=== PATIENT | male | born 1980 | race Caucasian/White ===

== ENCOUNTER 2023-01-23 05:51 | Emergency (ER) | payer BC ==
[2023-01-23] MEDS ORDERED: Acetaminophen 325 MG Tab PO ONE (06:09)
[2023-01-23] MEDS ORDERED: Morphine 15 MG Tab PO STA (06:10)
[2023-01-23] MEDS ORDERED: Ketorolac 10 MG Tab PO ONE (06:46)
== END 2023-01-23 07:29 | disposition home or self-care (01) ==
LOC: MW.ED 05:51
DX: G89.18 Other acute postprocedural pain (principal); Z88.0 Allergy status to penicillin; Z79.899 Other long term (current) drug therapy
CPT/HCPCS: 73600; 99283; A9270

== ENCOUNTER 2024-07-27 20:54 | Emergency (ER) | payer BC ==
[2024-07-27] MEDS ORDERED: Sodium Chloride 0.9% 20 ML SDV IV PRN (21:56)
[2024-07-27 22:10] LABS: BASOPHILS ABSOLUTE AUTO 0.02 K/uL (0.00-0.20); BASOPHILS PERCENT AUTO 0.2 % (0.0-1.0); EOSINOPHILS ABSOLUTE AUTO 0.15 K/uL (0.00-0.45); EOSINOPHILS PERCENT AUTO 1.4 % (0.0-6.0); HEMOGLOBIN 16.7 g/dL (14.0-18.0); IMMATURE GRAN ABSOLUTE AUTO 0.05 K/uL (0.00-0.05); IMMATURE GRAN PERCENT AUTO 0.5 % (0.0-0.4); LYMPHOCYTES ABSOLUTE AUTO 1.25 K/uL (1.00-4.80); LYMPHOCYTES PERCENT AUTO 11.9 % (24.0-44.0); MEAN CORPUSCULAR HEMOGLOBIN 31.1 pg (28.0-32.0); MEAN CORPUSCULAR HGB CONC 35.5 g/dL (32.0-36.0); MEAN CORPUSCULAR VOLUME 87.5 fL (83.0-99.0); MEAN PLATELET VOLUME 8.8 fL (9.4-12.4); MONOCYTES ABSOLUTE AUTO 0.77 K/uL (0.00-0.80); MONOCYTES PERCENT AUTO 7.3 % (0.0-8.0); NEUTROPHILS ABSOLUTE AUTO 8.27 K/uL (1.80-7.70); NEUTROPHILS PERCENT AUTO 78.7 % (41.0-71.0); PLATELET COUNT,PLT 251 K/uL (150-400); RED BLOOD CELL COUNT 5.37 M/uL (4.52-5.90); WHITE BLOOD CELL COUNT,WBC 10.51 K/uL (3.9-11.3)
[2024-07-27 22:33] LABS: A/G RATIO 0.7 (0.9-1.6); ALBUMIN 3.2 g/dL (3.4-5.0); BILIRUBIN TOTAL 0.8 mg/dL (0.2-1.0); C-REACTIVE PROTEIN 8.56 mg/dL (<0.3); CALCIUM 9.6 mg/dL (8.5-10.1); CARBON DIOXIDE,CO2 29.2 mmol/L (21.0-32.0); CREATININE 1.4 mg/dL (0.8-1.3); EST CRCL DRUG DOSING (CG) 73.13 mL/min; POTASSIUM,K 3.2 mmol/L (3.5-5.1); PROTEIN TOTAL,TP 7.9 g/dL (6.4-8.2)
[2024-07-27] MEDS: Ketorolac 30 MG/ML SDV IVPUSH ONE (22:46)
[2024-07-27] MEDS: Sodium Chloride 0.9% 1,000 ML IV ONE (22:46)
[2024-07-27] MEDS: Iopamidol 755 MG/ML 500 ML Multipack Bottle IVPUSH STA (22:57)
[2024-07-28] MEDS: Sodium Chloride 0.9% 2.5 ML Syringe FLUSH PRN (00:24)
[2024-07-28] MEDS: Sodium Chloride 0.9% 10 ML Syringe FLUSH PRN (00:24)
[2024-07-28] MEDS: Ampicillin/Sulbactam Na 3 GM in Sodium Chloride 0.9% 100 ML IV ONE (00:24)
[2024-07-28] MEDS: Sodium Chloride 0.9% 1,000 ML IV SCH (02:31)
[2024-07-28] MEDS: Ketorolac 30 MG/ML SDV IVPUSH ONE (04:58)
[2024-07-28] MEDS: HYDROmorphone 0.5 MG/0.5 ML Syringe IVPUSH ONE ×2 (04:58→09:20)
[2024-07-28] MEDS: Ampicillin/Sulbactam Na 3 GM in Sodium Chloride 0.9% 100 ML IV SCH (06:18)
== END 2024-07-28 09:30 ==
LOC: MW.ED 20:54
DX: K02.9 Dental caries, unspecified (principal); K04.7 Periapical abscess without sinus; R13.10 Dysphagia, unspecified; Z79.899 Other long term (current) drug therapy; Z88.0 Allergy status to penicillin
CPT/HCPCS: 36415; 70487; 80053; 85025; 85652; 86140; 96361; 96365; 96366; 96375; 96376; 99285; J0295; J1170; J1885; J3490; J7030; Q9967